=== PATIENT | male | born 1975 | race Caucasian/White ===

== ENCOUNTER → 2017-01-23 | Outpatient (CLI) | payer OTHER ==
[~2017-01-23] MED LIST: CEPH500C PO; PRLSR20 PO
[2017-01-23 18:11] LABS: LYME DISEASE AB IGG NEG (NEG); LYME DISEASE AB IGM NEG (NEG)
== END | disposition home or self-care (01) ==
LOC: C.LAB1850 13:42
PROVIDERS: ATTEND Physician Assistant
DX: M25.50 Pain in unspecified joint (principal); Z86.19 Personal history of other infectious and parasitic diseases

== ENCOUNTER 2017-04-28 11:30 | Emergency (ER) | payer OTHER ==
[~2017-04-28] VITALS: Ht 182.9 cm; Wt 89.1 kg
[2017-04-28 11:34] VITALS: TEMP 36.8; Ht 182.9 cm; Wt 89.1 kg
[2017-04-28] MEDS ORDERED: PRLSR20 PO (11:45)
--- NOTE | 2017-04-28 12:30 | DIAGNOSTIC IMAGING REPORT ---
LEFT HAND MIN 3 VIEWS ROUTINE CLINICAL HISTORY: puncture wound with arrow, through the hand, arrow shattered COMPARISON: None. DISCUSSION: The bones and joint spaces appear intact. There is no evidence of fracture, dislocation or bony disease. Soft tissue disruption and/or laceration in the region of the thenar eminence. No radiopaque foreign body. IMPRESSION: Soft tissue disruption in the region of the thenar eminence. No evidence for radiopaque foreign body. No acute bony abnormality. The above report was generated using voice recognition software. It may contain grammatical, syntax or spelling errors. Electronically signed by: Drake Noyola M.D. 04/28/2017 12:28 PM Dictated Date/Time: 04/28/2017 12:27 PM
[2017-04-28] MEDS ORDERED: XYLOCAINE 1%/SOD BICARB 20 ML VIAL INFIL ONE (12:45)
--- NOTE | 2017-04-28 13:18 | EMERGENCY ROOM VISIT NOTE ---
ED Visit Note First contact with patient: 11:40 CHIEF COMPLAINT: Puncture wound from Arrow through hand HISTORY OF PRESENT ILLNESS: This 41-year-old male patient presents to the emergency department approximately one hour after shooting a child's arrow through the left hand. The patient states he was attempting to load an arrow which was too small for his bow onto the boat, and did not realize the arrow did not extend to the end of the bow. The patient states when he went to shoot the bow, the arrow was resting against his left hand. He shot the arrow, which shattered as it was moving through his hand. The arrow is made of fiberglass, and shattered into several long pieces. The tip of the arrow did get lost somewhere in the nicole, as it only slightly punctured the anterior aspect of the left hand. The other end of the arrow remains in the patient's possession and is in several long pieces. The patient now complains of a puncture wound through his left hand, with an entrance room through the posterior aspect of the hand, and a small exit wound through the anterior aspect, in the fleshy part of his hand between his 1st and 2nd fingers. The bleeding has stopped with a pressure dressing.. Denies weakness or numbness of the hand and fingers. The patient rates the pain as throbbing and 5/10. The patient denies any other injuries. The patient's Tetanus shot is up to date. REVIEW OF SYSTEMS: A 6 system review of systems was completed with positives and pertinent negatives listed in the HPI. ALLERGIES: None MEDICATIONS: Omeprazole PMH: GERD SOCIAL HISTORY: Patient lives locally with his family. He denies drug, alcohol , tobacco use. PHYSICAL EXAM: Vital Signs: Reviewed Nurse's notes, vital signs stable. GENERAL : This is a 41-year-old male, in no acute distress, well-developed, well- nourished. SKIN: There is a 1 cm long puncture wound on the posterior aspect of the left, in the webspace between the 1st and 2nd digits. The edges gape apart with traction. There is no foreign material in the wound and it looks clean. There is no active bleeding. No deep structures such as tendons, bones, or significant blood vessels are seen in the base of the wound. There is a small puncture wound on the anterior aspect, approximately the size of the tip of a ball point pen. Normal strength and movement of the left hand, fingers, and wrist. Capillary refill less than 2 seconds. Normal sensation to light and sharp touch. RADIOLOGY: X-Ray Left Hand: DISCUSSION: The bones and joint spaces appear intact. There is no evidence of fracture, dislocation or bony disease. Soft tissue disruption and/or laceration in the region of the thenar eminence. No radiopaque foreign body. IMPRESSION: Soft tissue disruption in the region of the thenar eminence. No evidence for radiopaque foreign body. No acute bony abnormality. EMERGENCY DEPARTMENT COURSE: I examined the patient. X-ray of the left hand was ordered and reviewed with no fracture or foreign body. Verbal consent was obtained to perform the procedure. Using sterile technique the wound was cleansed with Betadine. The area was sterilely draped. 2 ml of 1% buffered lidocaine was used to anesthetize the laceration on the posterior left hand. Once the patient was anesthetized, the wound was copiously irrigated under pressure with sterile saline. The wound was explored and was as described above. The laceration was repaired using 3 simple interrupted 5-0 nylon sutures with the wound edges being well approximated. The patient tolerated the procedure well. Hemostasis was achieved. The area was cleaned with sterile saline and dressed with bacitracin ointment and bandage. The patient was discharged home in good condition. DIFFERENTIAL DIAGNOSIS: Hand fracture, Hand contusion, Infection, arterial bleeding, soft tissue injury, muscular tear, and others. DIAGNOSIS: left hand puncture wound. DISCHARGE INSTRUCTIONS & TREATMENT: You were prescribed Keflex to be taken four times daily. This is an antibiotic. All antibiotics have the potential to cause diarrhea. Stop this medication and contact a medical provider if you were to develop any significant adverse side effects including: wheezing, shortness of breath, passing out, vomiting, or a diffuse rash. Always take antibiotics as directed and COMPLETE the ENTIRE course regardless of the improvement of your symptoms. You have received 3 sutures on your left hand. These sutures are NOT dissolvable and WILL need to be removed by a health care provider in 8-10 days. You can return to the Emergency Department or contact your Primary Care Provider to have the sutures removed. Proper wound care is essential for adequate wound healing and infection prevention. You can shower and clean the wound with soap and water. Do not scour over the wound, pat dry with a towel. Do not submerse the wound (i.e. bathe or dish wash) until the sutures have been removed. You can use an antibiotic ointment (like Bacitracin or Triple Antibiotic Ointment) with a dressing over the wound for the next 3-4 days. After this time you may leave the wound dry and open to the air. If crust develops over the wound you can use a Q-tip to apply a 1:1 peroxide:water solution to clean the wound. Look for signs of infection of the wound including: increased pain, swelling, foul discharge, streaking, or increased temperature. If any of these are noticed you should return to the Emergency Department for further assessment and treatment. As with any laceration you may have received nerve damage to the surrounding tissues. This damage may or may not be permanent. You should keep the area covered with sunscreen for the first 6 months to 1 year when at risk for exposure to help minimize scarring. You can also use scar reducing creams or Vitamin E oil to help minimize scarring. For pain control, you can use the following [id number]-[id number] medicines (if >12 yo): - Regular strength (325mg/tab) Tylenol (acetaminophen) 2 tabs every 4-6 hours as needed. Do not exceed 9 tablets in a 24 hour period. Avoid taking more than 3 grams (3000 mg) of Tylenol per day. This includes any other sources of acetaminophen you may take on a regular basis. - Regular strength (200 mg/tab) Advil (ibuprofen) 1-2 tabs every 4-6 hours as needed. Do not exceed a dose of 3200 mg per day. Return to the emergency department if your symptoms worsen despite treatment course outlined above. Please follow-up with the hand surgeon in 2-3 days for re-check and evaluation of the wound, as the arrow did go through the hand and exit through the other side. Please contact [facility] to schedule this appointment tomorrow. Current/Historical Medications Scheduled Cephalexin Monohydrate (Keflex), 500 MG PO QID Omeprazole (Prilosec), 20 MG PO DAILYBD Allergies Coded Allergies: No Known Allergies (Unverified , 04/28/17) Vital Signs Date Time Temp Pulse Resp B/P (MAP) Pulse Ox O2 Delivery O2 Flow Rate FiO2 04/28/17 13:37 78 18 126/70 99 04/28/17 11:34 36.8 62 16 138/91 100 Room Air Departure Information Impression Primary Impression: Puncture wound of left hand Dispostion Home / Self-Care Condition GOOD Prescriptions Cephalexin Monohydrate (Keflex) 500 Mg Cap 500 MG PO QID for 10 Days, #40 CAP Prov: Yumiko Prieto PA-C 04/28/17 Referrals Pro,Khang Menjivar M.D. (PCP) Clement Chaudhary MD Patient Instructions ED Laceration Ext Sutr Stap Tape, ED Wound Puncture General, [facility] Additional Instructions You were prescribed Keflex to be taken four times daily. This is an antibiotic. All antibiotics have the potential to cause diarrhea. Stop this medication and contact a medical provider if you were to develop any significant adverse side effects including: wheezing, shortness of breath, passing out, vomiting, or a diffuse rash. Always take antibiotics as directed and COMPLETE the ENTIRE course regardless of the improvement of your symptoms. You have received 3 sutures on your left hand. These sutures are NOT dissolvable and WILL need to be removed by a health care provider in 8-10 days. You can return to the Emergency Department or contact your Primary Care Provider to have the sutures removed. Proper wound care is essential for adequate wound healing and infection prevention. You can shower and clean the wound with soap and water. Do not scour over the wound, pat dry with a towel. Do not submerse the wound (i.e. bathe or dish wash) until the sutures have been removed. You can use an antibiotic ointment (like Bacitracin or Triple Antibiotic Ointment) with a dressing over the wound for the next 3-4 days. After this time you may leave the wound dry and open to the air. If crust develops over the wound you can use a Q-tip to apply a 1:1 peroxide:water solution to clean the wound. Look for signs of infection of the wound including: increased pain, swelling, foul discharge, streaking, or increased temperature. If any of these are noticed you should return to the Emergency Department for further assessment and treatment. As with any laceration you may have received nerve damage to the surrounding tissues. This damage may or may not be permanent. You should keep the area covered with sunscreen for the first 6 months to 1 year when at risk for exposure to help minimize scarring. You can also use scar reducing creams or Vitamin E oil to help minimize scarring. For pain control, you can use the following zrzs-bom-jrdkung medicines (if >12 yo): - Regular strength (325mg/tab) Tylenol (acetaminophen) 2 tabs every 4-6 hours as needed. Do not exceed 9 tablets in a 24 hour period. Avoid taking more than 3 grams (3000 mg) of Tylenol per day. This includes any other sources of acetaminophen you may take on a regular basis. - Regular strength (200 mg/tab) Advil (ibuprofen) 1-2 tabs every 4-6 hours as needed. Do not exceed a dose of 3200 mg per day. Return to the emergency department if your symptoms worsen despite treatment course outlined above. Please follow-up with the hand surgeon in 2-3 days for re-check and evaluation of the wound, as the arrow did go through the hand and exit through the other side. Please contact [facility] to schedule this appointment tomorrow. Problem Qualifiers Primary Impression: Puncture wound of left hand Encounter type: initial encounter Foreign body presence: without foreign body Qualified Codes: S61.432A - Puncture wound without foreign body of left hand, initial encounter
[2017-04-28] MEDS ORDERED: CEPH500C PO (13:27)
[2017-04-28 13:37] VITALS: BP 126/70; PULSE 78; O2SAT 99
== END 2017-04-28 13:40 | disposition home or self-care (01) ==
LOC: C.EDB 11:31 → C.EDD 13:40
DX: S61.432A Puncture wound without foreign body of left hand, initial encounter (principal); W45.8XXA Other foreign body or object entering through skin, initial encounter; K21.9 Gastro-esophageal reflux disease without esophagitis; Z79.899 Other long term (current) drug therapy

== ENCOUNTER → 2017-07-02 | Outpatient (CLI) | payer OTHER ==
[~2017-07-02] MED LIST changes: -CEPH500C PO
[2017-07-02 09:52] LABS: BLOOD UREA NITROGEN 14 mg/dl (7-18); BUN/CREATININE RATIO 16.8 (10-20); CALCIUM 9.4 mg/dl (8.5-10.1); CARBON DIOXIDE 27 mmol/L (21-32); CHLORIDE 102 mmol/L (98-107); CHOLESTEROL 203 mg/dl (0-200); CREATININE 0.81 mg/dl (0.60-1.40); GLUCOSE 93 mg/dl (70-99); POTASSIUM 3.6 mmol/L (3.5-5.1); SODIUM 137 mmol/L (136-145); TRIGLYCERIDES 182 mg/dl (0-150); VERY LOW DENSITY LIPOPROT CALC 36 mg/dl
[2017-07-02 09:55] LABS: HDL CHOLESTEROL 41 mg/dl; LDL CHOLESTEROL CALCULATED 126 mg/dl
== END | disposition home or self-care (01) ==
LOC: C.LAB1850 07:15
PROVIDERS: ATTEND Internal Medicine
DX: E78.5 Hyperlipidemia, unspecified (principal)